=== PATIENT | male | born 1980 ===

== ENCOUNTER 2025-02-14 12:26 | Emergency (ER) | payer MEDICAID ==
[2025-02-14 12:31] VITALS: TEMP 97.9
--- NOTE | 2025-02-14 13:10 | ED ---
Wound/Laceration HPI - General Source: patient, RN notes reviewed Mode of arrival: EMS Limitations: no limitations <Ginger Ruiz - Last Filed: 02/14/25 13:10> - General Source: patient, RN notes reviewed Mode of arrival: EMS Limitations: no limitations <Ernestine Redd - Last Filed: 02/14/25 18:27> - General Chief Complaint: Wound/Laceration Stated Complaint: Syncope,L hand lac Time Seen by Provider: 02/14/25 13:10 - History of Present Illness Initial Comments: 44-year-old male presented the ER for evaluation of a laceration. Patient states he was using his pocket knife to cut Saran wrap off of his boat when he accidentally cut his left third digit. He states a laceration over PIP joint. Patient was initially seen at urgent care and while soaking laceration and an iodine tub patient had a vasovagal episode. Patient states this typically happens when he sees blood. Patient states he accidentally fell off exam table at urgent care which prompted EMS to be called and emergency department evaluation. Patient denies any current headache, dizziness, lightheadedness, chest pain or shortness of breath. Tetanus is up-to-date. He denies any limited range of motion or paresthesias to left third digit. No other injuries or complaints at this time. (Ernestine Redd) - Related Data Allergies Allergy/AdvReac Type Severity Reaction Status Date / Time No Known Allergies Allergy Verified 02/14/25 12:31 Review of Systems ROS Other: All systems not noted in ROS Statement are negative. <Ginger Ruiz - Last Filed: 02/14/25 13:10> ROS Other: All systems not noted in ROS Statement are negative. <Ernestine Redd - Last Filed: 02/14/25 18:27> ROS Statement: Those systems with pertinent positive or pertinent negative responses have been documented in the HPI. Past Medical History Past Medical History: No Reported History Past Surgical History: Orthopedic Surgery Smoking Status: Former smoker Past Alcohol Use History: None Reported Past Drug Use History: Marijuana <Ginger Ruiz - Last Filed: 02/14/25 13:10> General Exam Limitations: no limitations <Ginger Ruiz - Last Filed: 02/14/25 13:10> Limitations: no limitations General appearance: alert, in no apparent distress Respiratory exam: Present: normal lung sounds bilaterally. Absent: respiratory distress, wheezes, rales, rhonchi, stridor Cardiovascular Exam: Present: regular rate, normal rhythm, normal heart sounds. Absent: systolic murmur, diastolic murmur, rubs, gallop, clicks Extremities exam: Present: normal inspection, full ROM, normal capillary refill (2+ left radial). Absent: tenderness, pedal edema, joint swelling, calf tenderness Neurological exam: Present: alert, oriented X3, CN II-XII intact Skin exam: Present: warm, dry, intact, normal color, other (There is a 3 cm flap laceration noted to left third digit overlying PIP joint. Deep structures intact.). Absent: rash <Ernestine Redd - Last Filed: 02/14/25 18:27> Course Vital Signs 02/14/25 02/14/25 12:29 15:12 Temperature 97.9 F Pulse Rate 68 66 Respiratory 18 20 Rate Blood Pressure 143/86 154/98 O2 Sat by Pulse 98 97 Oximetry Procedures - Laceration Laceration #1 Consent Obtained: verbal consent Indication: laceration Site: hand Size (cm): 3 Description: flap Anesthetic Used: lidocaine 1%, without epi Anesthesia Technique: nerve block Amount (mls): 7 Pre-repair: wound explored, irrigated extensively, deep structures intact Type of Sutures: nylon Size of Sutures: 5-0 Number of Sutures: 6 Technique: simple, interrupted Patient Tolerated Procedure: well <Ernestine Redd - Last Filed: 02/14/25 18:27> Medical Decision Making - Radiology Data Radiology results: report reviewed, image reviewed <Ernestine Redd - Last Filed: 02/14/25 18:27> - Medical Decision Making Was pt. sent in by a medical professional or institution (, PA, SHEET METAL WORKER HELPER, urgent care, hospital, or long term...) When possible be specific @ -Patient sent from urgent care for evaluation of syncope and laceration. Did you speak to anyone other than the patient for history (EMS, parent, family, police, friend...)? What history was obtained from this source @ -Patient's , at bedside, aiding in HPI and past medical history. Did you review nursing and triage notes (agree or disagree)? Why? @ -I reviewed and agree with nursing and triage notes Were old charts reviewed (outside hosp., previous admission, EMS record, old EKG, old radiological studies, urgent care reports/EKG's, long term records)? Report findings @ -No old charts were reviewed Differential Diagnosis (chest pain, altered mental status, abdominal pain women, abdominal pain men, vaginal bleeding, weakness, fever, dyspnea, syncope, headache, dizziness, GI bleed, back pain, seizure, CVA, palpatations, mental health, musculoskeletal)? @ -Laceration, abrasion, contusion, avulsion, foreign body this list is not meant to be all-inclusive EKG interpreted by me (3pts min.). @ -As above X-rays interpreted by me (1pt min.). @ -None done CT interpreted by me (1pt min.). @ -None done U/S interpreted by me (1pt. min.). @ -None done What testing was considered but not performed or refused? (CT, X-rays, U/S, labs)? Why? @ -Syncopal workup offered to patient who refused. Patient refused EKG and Accu-Chek blood sugar. What meds were considered but not given or refused? Why? @ -None Did you discuss the management of the patient with other professionals (pr ofessionals i.e. , PA, SHEET METAL WORKER HELPER, lab, RT, psych nurse, social work nurse, stained glass artist, teacher, data officer, outsole caser)? Give summary @ -No Was smoking cessation discussed for >3mins.? @ -No Was critical care preformed (if so, how long)? @ -No Were there social determinants of health that impacted care today? How? (Homelessness, low income, unemployed, alcoholism, drug addiction, transportation, low edu. Level, literacy, decrease access to med. care, snf, rehab)? @ -No Was there de-escalation of care discussed even if they declined (Discuss DNR or withdrawal of care, Hospice)? DNR status @ -No What co-morbidities impacted this encounter? (DM, HTN, Smoking, COPD, CAD, Cancer, CVA, ARF, Chemo, Hep., AIDS, mental health diagnosis, sleep apnea, morbid obesity)? @ -None Was patient admitted / discharged? Hospital course, mention meds given and route, prescriptions, significant lab abnormalities, going to OR and other pertinent info. @ -Discharge. 44-year-old male presented the ER via EMS for evaluation of a laceration. Vitals within acceptable limits. Patient is neurovascularly intact. There is a 3 cm flap laceration noted to left third digit. Patient has full active range of motion. X-rays obtained negative for acute fractures or dislocations. Tetanus is up-to-date. Wound closed, see note above. As patient had syncopal episode at urgent care which prompted emergency department visit, syncopal workup was recommended including EKG and Accu-Chek blood sugar, patient refused stating he typically passes out when seeing blood. confirms this. Suture and wound care discussed. I advised suture removed in 10 to 14 days. Strict return parameters discussed. Patient discharged in stable condition with follow-up to PCP. Patient verbally expressed understanding agree with care plan. Case discussed with ED attending, Dr. Hansen. Undiagnosed new problem with uncertain prognosis? @ -No Drug Therapy requiring intensive monitoring for toxicity (Heparin, Nitro, Insu anna, Cardizem)? @ -No Were any procedures done? @ -Yes Diagnosis/symptom? @ -Laceration Acute, or Chronic, or Acute on Chronic? @ -Acute Uncomplicated (without systemic symptoms) or Complicated (systemic symptoms)? @ -Uncomplicated Side effects of treatment? @ -No Exacerbation, Progression, or Severe Exacerbation? @ -No Poses a threat to life or bodily function? How? (Chest pain, USA, MS, pneumonia, PE, COPD, DKA, ARF, appy, cholecystitis, CVA, Diverticulitis, Homicidal, Suicidal, threat to staff... and all critical care pts) @ -No (Ernestine Redd) Disposition <Ginger Ruiz - Last Filed: 02/14/25 13:10> Is patient prescribed a controlled substance at d/c from ED?: No Time of Disposition: 13:56 <Ernestine Redd - Last Filed: 02/14/25 18:27> Clinical Impression: Laceration Disposition: HOME SELF-CARE Condition: Stable Instructions (If sedation given, give patient instructions): Care For Your Stitches (ED) Additional Instructions: Have sutures removed in 10 to 14 days. Keep area clean and dry. Return to the ER for new or worsening concerns. Referrals: aCm Pleitez, DO [Primary Care Provider] - 1-2 days
[2025-02-14] MEDS: LIDOCAINE 1% INJ 10MG/ML (20 ML MDV) SQ ONE (13:59)
[2025-02-14 15:14] VITALS: BP 154/98; PULSE 66; RESP 20
== END 2025-02-14 15:15 | disposition home or self-care (01) ==
LOC: EC 12:26
DX: S61.412A Laceration without foreign body of left hand, initial encounter (principal); Z87.891 Personal history of nicotine dependence; W26.0XXA Contact with knife, initial encounter
CPT/HCPCS: 99283; 12002; J2003